=== PATIENT | female | born 1960 | race Asian ===

== ENCOUNTER 2023-02-14 09:32 | Day surgery (SDC) | payer OTHER ==
[~2023-02-14] VITALS: Ht 165.1 cm; Wt 56.7 kg
[2023-02-14] MEDS ORDERED: LIDOCAINE 2% 100 MG/5 ML UJET TP ONE (11:06)
[2023-02-14] MEDS ORDERED: fentaNYL citrate 0.05 MG/ML VIAL ONE (11:06)
[2023-02-14] MEDS ORDERED: MIDAZOLAM 5 MG/5 ML VIAL ONE (11:06)
[2023-02-14] MEDS ORDERED: diphenhydrAMINE 50 MG/ML VIAL ONE (11:06)
[2023-02-14] MEDS ORDERED: MIDAZOLAM 5 MG/5 ML VIAL IV ONE (14:25)
[2023-02-14] MEDS ORDERED: fentaNYL citrate 0.05 MG/ML VIAL IVP ONE (14:25)
== END 2023-02-14 12:15 | disposition home or self-care (01) ==
LOC: MDS 09:32 → MMU 09:33 → MDS 12:15
PROVIDERS: ATTEND Internal Medicine Gastroenterology
DX: R10.13 Epigastric pain (principal); K29.50 Unspecified chronic gastritis without bleeding; K21.00 Gastro-esophageal reflux disease with esophagitis, without bleeding
CPT/HCPCS: 43239; 88305; 88312; 88313; 88342; J2250; J3010; J1200